=== PATIENT | female | born 1950 | race Caucasian/White ===

== ENCOUNTER 2018-08-30 07:18 | Observation (INO) | payer OTHER ==
[~2018-08-30] VITALS: Ht 167.6 cm; Wt 107.0 kg
[2018-08-30] VITALS (10 sets, daily range): BP systolic 90–132; BP diastolic 52–77
--- NOTE | ~2018-08-30 | D ---
[address] [address] DISCHARGE SUMMARY Name: AIMEE NOVOA Room: [address] Alfreda Wick#: [id number] Admission: 08/30/18 Attend Phys: Ross Alberto MD, Discharge: Date of : 50 Report #: [id number] THIS REPORT FOR: //name// CC: Ross Álvarez FINAL DISCHARGE DIAGNOSES: 1. Unstable angina. 2. Status post complex percutaneous coronary intervention with atherectomy and stenting of the right coronary artery. 3. Hypertension. 4. Hypercholesterolemia. 5. Hypothyroidism. 6. Exogenous obesity. PROCEDURES: 08/30/2018 -- left heart catheterization, left ventriculography, selective coronary arteriography, and percutaneous coronary intervention with atherectomy and stenting of the proximal, mid, and acute marginal portions of the right coronary artery. The patient is a very pleasant 68-year-old female with a history of prior percutaneous coronary interventions to the right coronary artery. She presented to the office on 08/29/2018 with episodes of nausea, diaphoresis and mild chest discomfort that was similar to her prior ischemic syndrome. She has risk factors of hypertension, hypercholesterolemia and known coronary disease. In this context, I performed cardiac catheterization on 08/29/2018, which revealed 30% mid LAD narrowing with significant lesions throughout the right coronary artery with 90% ostial proximal in-stent restenosis, 90% mid right coronary in-stent restenosis and 75%-80% narrowing at the acute margin. I performed complex percutaneous coronary intervention with angioplasty, atherectomy and stenting of the proximal mid and acute marginal portions. I deployed a 3.0 x 12 mm Xience Chrissy drug-eluting stent in the proximal LAD, performed atherectomy alone and a focal mid right coronary lesion with a 3.0 x 10 mm AngioSculpt balloon and placed sequential 2.75 x 12 mm drug-eluting stents at the acute margin with 10, 0 and 0% residual narrowings and ROBERT 3 flow of the distal vessel. There was transitory occlusion during the procedure and there was a minimal enzymatic leak with a peak troponin of 3.1. The patient did well post-procedurally without recurrent chest discomfort. She ambulated in the hallways without difficulty and there was good hemostasis at the right femoral site of catheterization. LABORATORY DATA: Labs include a hemoglobin of 10.5, white blood cell count of 8900 with 263,000 platelets. Sodium 143, potassium 4.3, BUN 12, creatinine 1.0. Troponin 3.18. [place] [address] DISCHARGE SUMMARY Name: AIMEE NOVOA [address] [id number] Admission: 08/30/18 Attend Phys: Ross Alberto MD, Discharge: Date of : 50 Report #: [id number] She was discharged to home on the following medications: Aspirin 162 mg daily, citalopram 40 mg daily, Imdur 30 mg daily, Prevacid 15 mg daily, L-thyroxine 175 mcg daily, loratadine 10 mg daily, metoprolol succinate 25 mg b.i.d., prasugrel 10 mg daily with a 60 mg loading dose given periprocedurally, ramipril 10 mg daily, simvastatin 40 mg at bedtime, nitroglycerin 0.4 mg sublingually p.r.n. chest discomfort. The patient is discharged home in stable condition. She is scheduled to return to see me in the office and nurse practitioner on 09/10/2018 at 10:00 and myself on 10/22/2018 at 10:40. Thus, the patient is discharged to home in stable condition on the aforementioned medications with followup as iterated above. By: 1030 1203Ross Alberto MD, FACC /nt
[~2018-08-30 07:18] MED LIST: ALTACE 1.25 M1.25 M1 PO; ALTACE5 M1 PO; ASPIRIN EC81 M1 PO; BAYER CHEWABLE81 MG PO; CELEXA 20 MG TA20 M1 PO; CELEXA40 MG PO; CLARITIN10 MG PO; EFFIENT10 MG PO; IMDUR 30 MG TAB30 M1 PO; ISOSORBIDE MONO30 M1 PO; LANSOPRAZOLE30 MG PO; LEVOTHYROXIN0.125 M1 PO; LEVOXYL175 MCG PO; METOPROLOL SUCC25 M1 PO; NITROSTAT0.4 MG SUBLING; PREVACID15 MG PO; RAMIPRIL10 MG PO; SIMVASTATIN40 MG PO; SYNTHROID100 MCG PO; SYNTHROID175 MCG PO; SYNTHROID88 MCG PO; TIROSINT100 MCG PO; TYLENOL325 MG PO
[2018-08-30 08:16] LABS: HEMATOCRIT 38.2 % (37.0-47.0); HEMOGLOBIN 12.2 gm/dL (12.0-15.0); MCH 25.1 pg (26.0-34.0); MCHC 31.9 g/dL (28.0-37.0); MCV 78.7 fL (80.0-100.0); MPV 8.2 fl. (7.2-11.1); RBC 4.85 mil/uL (4.20-5.00); RDW-CV 16.9 % (10.5-14.5); WBC 6.4 thou/uL (4.0-11.0)
[2018-08-30 08:24] LABS: APTT 27.4 Seconds (25.0-31.3); PROTIME 10.2 Seconds (9.20-11.50)
[2018-08-30 08:28] LABS: ALBUMIN 3.1 g/dL (3.4-5.0); ALKALINE PHOSPHATASE 73 U/L (46-116); ANION GAP 8 mmol/L (7-16); BUN 15 mg/dL (7-18); CALCIUM 8.7 mg/dL (8.5-10.1); CHLORIDE 102 mmol/L (98-107); CO2 30 mmol/L (21-32); CREATININE 1.1 mg/dL (0.6-1.3); GLUCOSE 86 mg/dL (70-99); POTASSIUM 3.6 mmol/L (3.5-5.1); SGOT 29 U/L (15-37); SGPT 29 U/L (30-65); SODIUM 140 mmol/L (136-145); TOTAL BILIRUBIN 0.3 mg/dL (<0.1-1.0); TOTAL PROTEIN 7.3 g/dL (6.4-8.2)
[2018-08-30 08:29] LABS: SERUM ASSESSMENT Clear
[2018-08-30 13:35] LABS: CHOLESTEROL 161 mg/dL (<200); HDL CHOLESTEROL 54 mg/dL (>40); LDL CHOLESTEROL 73 mg/dL (<100); TRIGLYCERIDE 171 mg/dL (<150); VLDL 34 mg/dL (<40)
--- NOTE | 2018-08-30 15:07 | EKG ---
[place] [address] ELECTROCARDIOGRAM REPORT Name: AIMEE NOVOA Room: [address] M.R.#: [id number] Admission: 08/30/18 Attend Phys: Ross Alberto MD, Discharge: Date of : 50 Report #: [id number] THIS REPORT FOR: //name// [facility] Test Date: 2018-08-30 Test Time: 08:42:05 Pat Name: AIMEE NOVOA Department: Room: [facility] Gender: F Battery Assembler Plastic: : 1950 Requested By: Ross Alberto Order Number: [id number] Flavia MD: Ross Alberto Measurements Intervals [place] Rate: 55 P: -9 SD: 165 QRS: 22 QRSD: 103 T: 14 QT: 448 QTc: 429 Interpretive Statements Sinus rhythm Low voltage, precordial leads Compared to ECG 12/05/2015 08:41:35 Low QRS voltage now present Electronically Signed On 08-30-2018 15:07:42 CDT by Ross Alberto [email or web address] <ELECTRONICALLY SIGNED> By: Ross Alberto MD, [facility] 08/30/18 1507 0842 0842 Ross Alberto MD, [facility] /EPI
--- NOTE | 2018-08-30 15:08 | EKG ---
[place] [address] ELECTROCARDIOGRAM REPORT Name: AIMEE NOVOA Room: [address] M.R.#: [id number] Admission: 08/30/18 Attend Phys: Ross Alberto MD, Discharge: Date of : 50 Report #: [id number] THIS REPORT FOR: //name// [facility] Test Date: 2018-08-30 Test Time: 13:12:31 Pat Name: AIMEE NOVOA Department: Room: [facility] Gender: F Clinic Physician Director: : 1950 Requested By: Ross Alberto Order Number: [id number] Flavia MD: Ross Alberto Measurements Intervals [place] Rate: 50 P: 3 ID: 166 QRS: 11 QRSD: 82 T: 24 QT: 472 QTc: 431 Interpretive Statements Sinus rhythm Inferior infarct, old possible Compared to ECG 12/05/2015 08:41:35 Myocardial infarct finding now present Electronically Signed On 08-30-2018 15:08:47 CDT by Ross Alberto [email or web address] <ELECTRONICALLY SIGNED> By: Ross Alberto MD, [facility] 08/30/18 1508 1312 1312 Ross Alberto MD, [facility] /EPI
--- NOTE | 2018-08-30 18:14 | NUR ---
PT ADMITTED AROUND 1250 PT IS ALERT AND ORIENTED X 4 PT DENIES PAIN OR SOA ON RA, PT IS SB-SR ON THE MONITOR, PT IS NOT A FALL RISK, PT HAD CATH PROCEDURE IS ON BEDREST TILL AROUND 1830 PT HAS FLUIDS RUNNING, PT MAY DISCHARGE TOMORROW, WILL CONTINUE TO MONITOR
[2018-08-31] VITALS: BP 136/59
[2018-08-31 04:00] VITALS: BP 141/69
[2018-08-31 05:05] LABS: HEMATOCRIT 32.7 % (37.0-47.0); HEMOGLOBIN 10.5 gm/dL (12.0-15.0); MCH 25.4 pg (26.0-34.0); MCV 79.3 fL (80.0-100.0); MPV 8.1 fl. (7.2-11.1); RBC 4.13 mil/uL (4.20-5.00); RDW-CV 16.9 % (10.5-14.5); WBC 8.9 thou/uL (4.0-11.0)
[2018-08-31 06:05] LABS: ALBUMIN 2.7 g/dL (3.4-5.0); CALCIUM 8.4 mg/dL (8.5-10.1); POTASSIUM 4.3 mmol/L (3.5-5.1); TOTAL BILIRUBIN 0.3 mg/dL (<0.1-1.0); TOTAL PROTEIN 6.2 g/dL (6.4-8.2)
[2018-08-31 06:15] LABS: TROPONIN-I LEVEL 3.18 ng/mL (<0.06)
--- NOTE | 2018-08-31 06:46 | NUR ---
ASSUMED PT CARE AT 1914. PT TRACING SINUS RHYTHM, RIGHT GROIN CATH SITE DRESSING CLEAN,DRY,INTACT. PT DENIES CHEST PAIN THIS SHIFT. C/O MIGRANE NEW ORDERS RECEIVED FROM DR. BETTS AT 2038. HOURLY ROUNDING COMPLETED. CALL LIGHT WITHIN REACH. NO CONCERNS VOICED THIS SHIFT.
[2018-08-31 08:00] VITALS: BP 114/61
[2018-08-31 10:15] VITALS: BP 114/62
--- NOTE | 2018-08-31 10:20 | NUR ---
ASSUMED CARE OF PT AT 0730. PT RESTING IN BED WAITING FOR BREAKFAST. PT A&0X4, DENIES ANY PAIN OR SHORTNESS OF BREATH AT THIS TIME .PT TRACING SR ON THE RESERVE OFFICER. ON RA SAT UPPER 90'S. PT UP AD [place]ODORE IN ROOM. RIGHT GROIN CATH SITE C/D/I WITH NO HEMATOMA NOTED. PT GOAL FOR TODAY IS DISCHARGE TO HOME. AM ASSESSMENT CHARTED. MEDICATIONS PER AUG. PT REPOSITIONS SELF. HOURLY ROUNDING OBSERVED. BED IN LOW POSITION. CALL LIGHT WITHIN REACH. WILL CONTINUE PLAN OF CARE.
[2018-08-31] MEDS ORDERED: EFFIENT10 MG PO (11:17)
--- NOTE | 2018-08-31 11:44 | CARD ---
[address] [address] CARDIAC CATH REPORT Name: AIMEE NOVOA Room: [address] Shamika#: [id number] Admission: 08/30/18 Attend Phys: Ross Alberto MD, Discharge: Date of : 50 Report #: [id number] THIS REPORT FOR: //name// APPROVED REPORT Study performed: 08/30/2018 09:13:46 Patient Details Patient Status: Out-Patient Room #: The patient is a 68 year-old female Event Personnel Ross Alberto Area Director, Nicole Cortez RN Adjunct Professor Of Voice, Jose Rausch (R) Monitor, Himanshu Wills BRAKE LINING CURER Scrub Procedures Performed Art Access - R femoral artery* Admission/Lab Medications/Medications given during procedure Aspirin PO 162 mg, Effient PO 60 mg, Angiomax Drip IV 37.6 ml per hr, Angiomax IV 16 ml Procedure Narrative The patient was brought electively to the Cardiac Catheterization Laboratory and was prepped and draped in a sterile manner. The right femoral was infiltrated with 2% Lidocaine subcutaneous anesthesia. A [place] 6 FR sheath was inserted into the . Coronary angiography was performed using coronary diagnostic catheters. The right coronary system was accessed and visualized with a JR 4 6fr catheter. The left coronary system was accessed and visualized with a 6FR LAUNCHER AL 0.75 catheter. The left ventricle was accessed and visualized with a straight pig 6fr catheter. Left ventricular/Aortic Valve gradient assessed via catheter pullback. Pre-demployment femoral angiogram was performed . Closure device was deployed with a 6 Fr Angioseal. The patient tolerated the procedure well and there were no complications associated with the procedure. There was no hematoma. Intraoperative Conscious Sedation Fentanyl 125 mcg Versed 5 mg Fluoro Time: 60.7 minutes Dose: DAP [id number] cGycm2 7452 mGy Contrast Type and Amount: Visipaque [address] [place] [address] CARDIAC CATH REPORT Name: AIMEE NOVOA Room: [address] M.R.#: [id number] Admission: 08/30/18 Attend Phys: Ross Alberto MD, Discharge: Date of : 50 Report #: [id number] Diagnostic Cath Left Main 0% narrowing LAD 30% mid LAD narrowing Circumflex Nondominant vessel with mid vessel tortuosity; there was 0% narrowing Right Coronary Dominant vessel with 90% ostial proximal in-stent restenosis 90% focal mid right coronary in-stent restenosis and 80% in-stent restenosis at the acute margin Left Ventriculography The left ventricle is normal in size with normal contractility. The left ventricular ejection fraction is estimated to be 60%. Left ventricular wall motion abnormalities are not present. There is no mitral insufficiency. IVUS Findings AngioSculpt PTCA 2.5 X 10mm Hemodynamics The aortic pressure is 90/60 mmHg with a mean of 2 mmHg. The left ventricular end diastolic pressure is 5 mmHg. PCI Technique Lesion Anticoagulation was achieved with Angiomax. Patient was preloaded with Angiomax IV 16 ml. Percutaneous coronary intervention was performed on the mid right coronary artery. The lesion stenosis prior to intervention was 90% with ROBERT 3 flow. A 6FR LAUNCHER AL 0.75 Guide Catheter was used to engage the ostium. A IG: BMW 190cm Interventional Guidewire was used to cross the lesion. BALLOON DILATION A Balloon catheter AngioSculpt PTCA 3.0 X 10mm was inserted and inflated up to 18atm for 9seconds. Additional Inflation: 18.00atm for 19seconds. Additional Inflation: 18.00atm for 15seconds. STENT DEPLOYMENT A stent was inserted and inflated up to 16atm for 16seconds. Final angiography reveals 0 % stenosis with ROBERT flow. COMMENTS Procedure was complicated by diffuse hyperproliferative response within the stented regions in the ostial mid and acute marginal sites in the right coronary artery requiring extensive lesion preparation and atherectomy [place] [address] CARDIAC CATH REPORT Name: AIMEE NOVOA Room: [address] M.RChantal#: [id number] Admission: 08/30/18 Attend Phys: Ross Alberto MD, Discharge: Date of : 50 Report #: [id number] BALLOON DILATION A Balloon catheter AngioSculpt PTCA 2.5 X 10mm was inserted and inflated up to 14.00atm for 20seconds. Additional Inflation: 20.00atm for 35seconds. Additional Inflation: 20.00atm for 38seconds. PCI Technique Lesion 2 Percutaneous Coronary Intervention was performed on the proximal right coronary artery. The lesion stenosis prior to intervention was 90% with ROBERT 3 flow. Balloon Dilation A Balloon catheter Mini Trek RX 2.0 X 8, 3.0x10 Angiosculpt was inserted and inflated up to 16atm for 15seconds. Stent Deployment A drug-eluting stent Xience Chrissy 3.0X12mm was inserted and inflated up to 21.00atm for 15seconds. Additional Inflation: 15.00atm for 15seconds. Final angiography reveals 0 % stenosis with ROBERT 3 flow. BALLOON DILATION A Balloon catheter AngioSculpt PTCA 3.0 X 10mm was inserted and inflated up to 14atm for 62seconds. Additional Inflation: 16atm for 43seconds. PCI Technique Lesion 3 Percutaneous Coronary Intervention was performed on the right coronary artery at the acute margin. The lesion stenosis prior to intervention was 80% with ROBERT flow. Stent Deployment A drug-eluting stent Xience Chrissy 2.95W92dy (2) was inserted and inflated up to 16atm for 10seconds. Final angiography reveals 0 % stenosis with ROBERT 3 flow. Conclusion #1 significant coronary artery disease characterized by the following: A 90% ostial proximal right coronary in-stent restenosis with focal 90% mid right coronary in-stent restenosis and 80% in-stent restenosis at the acute margin [address] [address] CARDIAC CATH REPORT Name: AIMEE NOVOA Room: [address] Alfreda Wick#: [id number] Admission: 08/30/18 Attend Phys: Ross Alberto MD, Discharge: Date of : 50 Report #: [id number] B 30% mid LAD narrowing #2 normal left ventricular systolic function, estimate ejection fraction being 60% #3 normal left-sided hemodynamics study #4 successful atherectomy with stenting of the ostial mid and acute marginal lesions with drug-eluting stents deployed at the proximal and acute marginal sites with 0, 0 and 0% residual narrowings and ROBERT-3 flow to the distal vessel Recommendations Cardiac Risk Reduction Program Aggressive Medical Therapy Medications Administered Aspirin (any) Prasugrel Diagnostic Cath Approved by: Ross Alberto MD Date/Time: 08/31/2018 11:40:14 <ELECTRONICALLY SIGNED> By: Ross Alberto MD, FACC 08/31/18 1143 1143 1143Ross Alberto MD, FACC /INF
--- NOTE | 2018-08-31 12:32 | EKG ---
[place] [address] ELECTROCARDIOGRAM REPORT Name: AIMEE NOVOA Room: [address] M.R.#: [id number] Admission: 08/30/18 Attend Phys: Ross Alberto MD, Discharge: Date of : 50 Report #: [id number] THIS REPORT FOR: //name// [facility] Test Date: 2018-08-31 Test Time: 08:33:50 Pat Name: AIMEE NOVOA Department: Room: [facility] Gender: F Highway Engineering Technician: : 1950 Requested By: Ross Alberto Order Number: [id number] Flavia MD: Chad Alvarez Measurements Intervals [place] Rate: 68 P: 4 IA: 164 QRS: 18 QRSD: 84 T: 31 QT: 404 QTc: 430 Interpretive Statements Sinus rhythm Low voltage, precordial leads Compared to ECG 08/30/2018 13:12:31 Low QRS voltage now present rate increased Electronically Signed On 08-31-2018 12:32:45 CDT by Chad Alvarez [email or web address] <ELECTRONICALLY SIGNED> By: Chad Alvarez MD, [facility] 08/31/18 1232 0833 0833 Chad Alvarez MD, [facility] /EPI
--- NOTE | 2018-08-31 14:10 | NUR ---
DISCHARGE ORDERS RECEIVED. DISCHARGE INSTRUCTIONS, CARE NOTES, SCRIPTS AND FOLLOW UP APPTS GIVEN TO PT. PT COMMUNICATES UNDERSTANDING OF DISCHARGE TEACHING. IV AND CLOSING SUPERVISOR REMOVED. PT DISCHARGED WITH ALL BELONGINGS AND PAPERWORK VIA WHEELCHAIR WITH NURSING STAFF TO RELATIVES OWN PERSONAL VEHICLE.
== END 2018-08-31 14:10 | disposition home or self-care (01) ==
LOC: M.CL 07:18 → M.2W 11:55 → M.TBA-CV 11:55 → M.2W 12:53
PROVIDERS: ADMIT Internal Medicine
DX: I20.0 Unstable angina (principal); I10 Essential (primary) hypertension; E78.00 Pure hypercholesterolemia, unspecified; E03.9 Hypothyroidism, unspecified; E66.09 Other obesity due to excess calories; Z98.61 Coronary angioplasty status

== ENCOUNTER → 2021-06-22 | Outpatient (CLI) | payer MEDICARE ==
--- NOTE | 2021-06-22 13:35 | CARDNUC ---
[place] [address] CARDIAC NUCLEAR IMAGING REPORT Name: AIMEE NOVOA Room: [facility]#: [id number] Admission: 06/22/21 Attend Phys: J Luis Arrieta Discharge: Date of : 50 Date of Service: 06/22/21 1335 Report #: [id number] THIS REPORT FOR: cc: Tanner Álvarez Kent DO Liston,Devante Rueda MD [facility] ~ APPROVED REPORT Study performed: 06/22/2021 11:27:14 Exam: Nuclear Stress Test Indication: CAD s/p PCI Patient Location: Out-Patient Stress Nurse: Stormy Davis RN Ht: 5 ft 6 in Wt: 203 lbs BSA: 2.01 m2 BMI: 32.76 Medical History Medical History: CAD s/p stent, HTN, Hyperlipidemia Medications: asa-81, isosorbide, metoprolol, ramipril, simvastatin Allergies: No known drug allergies Cardiac Risk Factors: Age, HTN, Hyperlipidemia Previous Cardiac Procedures: PCI Exercise History: Indeterminate Meds Held (24 hrs): metoprolol Stress Test Details Stress Test: Pharmacologic stress testing performed using 0.4 mg of regadenoson per 5 mL given IV over 10 seconds. Reason for pharmacologic stress test: physical limitation. HR Resting HR: 63 bpm Max Heart Rate (APMHR): 150 bpm Max HR Achieved: 89 bpm Target HR (85% APMHR): 127 bpm % of APMHR: 59 Recovery HR: 78 bpm BP Resting BP: 155/90 mmHg Max BP: 156/88 [place] [address] CARDIAC NUCLEAR IMAGING REPORT Name: AIMEE NOVOA Room: [facility]#: [id number] Admission: 06/22/21 Attend Phys: J Luis Arrieta Discharge: Date of : 50 Date of Service: 06/22/21 1335 Report #: [id number] Resting ECG: Sinus Rhythm Stress ECG: Sinus Rhythm ST Change: None Arrhythmia: None Recovery ECG: Sinus Rhythm Recovery ST Change: None Recovery Arrhythmia: None Clinical Reason for Termination: Completed protocol The patient tolerated Lexiscan infusion without significant cardiac symptoms. Stress ECG Conclusion The baseline twelve-lead EKG shows sinus rhythm with unifocal premature ventricular contractions. EKGs obtained during and post Lexiscan infusion show sinus rhythm with no significant ST segment or T wave changes when compared to baseline. There were no significant stress-induced arrhythmias. NM EXAM: Myocardial Perfusion REST/STRESS Resting Data Rest SPECT myocardial perfusion imaging was performed in supine position 30 minutes following the intravenous injection of 10.3 mCi of Tc-99m Sestamibi. Time of rest injection: 10:10 The images were gated to evaluate regional wall motion and calculate left ventricular ejection fraction. Administration Route: IV Pharmacologic Stress Pharmacologic stress test was performed by injecting Regadenoson 0.4 mg IV push followed by the intravenous injection of 34.7 mCi of Tc-99m Sestamibi. Time of stress injection: 11:30 Administration Route: IV Heart Rate at time of stress injection: 86 bpm. Gated Stress SPECT was performed 45 minutes after stress injection. The images were gated to evaluate regional wall motion and calculate left ventricular ejection fraction. Prone imaging was performed. Study Quality Study: [place] [address] CARDIAC NUCLEAR IMAGING REPORT Name: AIMEE NOVOA [place] [id number] Admission: 06/22/21 Attend Phys: J Luis Arrieta Discharge: Date of : 50 Date of Service: 06/22/21 1335 Report #: [id number] Artifact: No artifact Study Data At rest, the left ventricular ejection fraction was 70%.. Post stress, the left ventricular ejection was 80%.. TID = 0.96. Perfusion Perfusion images obtained at rest and post Lexiscan stress show uniform uptake of the radioisotope throughout the myocardium. There were no defects to suggest infarct or ischemia. Wall Motion Normal left ventricular wall motion. Nuclear Conclusion ECG Findings: negative for ischemia Clinical Findings: negative for ischemia Nuclear Findings: negative for ischemia Exercise Capacity: not assessed Left Ventricular Function: normal Risk Study: low Left ventricular systolic function appears normal on gated studies. There were no defects to suggest infarct or ischemia. This is a low risk study. <Conclusion> The baseline twelve-lead EKG shows sinus rhythm with unifocal premature ventricular contractions. EKGs obtained during and post Lexiscan infusion show sinus rhythm with no significant ST segment or T wave changes when compared to baseline. There were no significant stress-induced arrhythmias. <ELECTRONICALLY SIGNED> By: Devante Cabezas MD, FACC 06/22/21 1335 1335 1335 Devante Cabezas MD, FACC /INF
== END ==
LOC: M.NUC 09:39
PROVIDERS: ATTEND Internal Medicine
DX: I25.10 Atherosclerotic heart disease of native coronary artery without angina pectoris (principal); Z95.5 Presence of coronary angioplasty implant and graft